=== PATIENT | female | born 1930 | race Caucasian/White ===

== ENCOUNTER → 2016-07-18 | Outpatient (CLI) | payer MEDICARE, BC | LOC: GMAB 10:41 | PROVIDERS: ATTEND Family Medicine | DX: D50.9 Iron deficiency anemia, unspecified (principal); I10 Essential (primary) hypertension ==

== ENCOUNTER → 2016-07-19 | Outpatient (CLI) | payer MEDICARE, BC ==
--- NOTE | 2016-07-19 10:13 | MAM ---
EXAM DESCRIPTION: MAMMO BREAST SCREENING BILATERAL CAD, images were reviewed with CAD technology, R2 computer-aided detection. CLINICAL HISTORY: [facility]. COMPARISON: 2011. FINDINGS: Routine views are obtained. Scattered glandular contour has increased nodularity and mammographic density. Distribution is stable. No dominant mass, architectural distortion or clustered microcalcification.. IMPRESSION: Benign exam. BIRAD CATEGORY: 2 BENIGN RECOMMENDATIONS: FOLLOW-UP: Routine screening mammogram in one year. According to the [employer], yearly mammograms are recommended starting at age 40 and continuing as long as a woman is in good health. Any breast change noted on a breast self-exam should be reported promptly to the patient's healthcare provider. Breast MRI is recommended for women with an approximately 20-25% or greater lifetime risk of breast cancer, including women with a strong family history of breast or ovarian cancer and women who have been treated for Hodgkin's disease. Electronically signed by: Grisel Murillo 07/19/2016 10:11
== END ==
LOC: MAMMO 09:25
PROVIDERS: ATTEND Family Medicine
DX: Z12.31 Encounter for screening mammogram for malignant neoplasm of breast (principal)
CPT/HCPCS: 77052; G0202

== ENCOUNTER → 2016-12-14 | Outpatient (CLI) | payer MEDICARE, BC | LOC: GMAB 16:39 | PROVIDERS: ATTEND Family Medicine | DX: D50.9 Iron deficiency anemia, unspecified (principal) ==

== ENCOUNTER → 2017-07-19 | Outpatient (CLI) | payer MEDICARE, BC | END | disposition home or self-care (01) | LOC: GMAB 13:07 | PROVIDERS: ATTEND Family Medicine | DX: D47.3 Essential (hemorrhagic) thrombocythemia (principal); E78.2 Mixed hyperlipidemia; I10 Essential (primary) hypertension ==

== ENCOUNTER → 2017-08-09 | Outpatient (CLI) | payer MEDICARE, BC ==
--- NOTE | 2017-08-13 09:33 | MAM ---
EXAM DESCRIPTION: 3D Screening BILATERAL : Digital Mammography. CLINICAL HISTORY: 87 years Female SCREENING . No complaints. No family history breast cancer. Postmenopausal. No HRT. Left breast biopsy. COMPARISON: 2-D screening bilateral studies 07/19/2016 and 05/31/2015. Report from prior examination also reviewed. TECHNIQUE: Bilateral CC and MLO projection full-field images, 3-D tomosynthesis digital mammographic technique. Also bilateral synthesized CC/ MLO full-field images. CAD not utilized. FINDINGS: The breast parenchymal density pattern is: Scattered areas of fibroglandular density. No skin thickening or nipple retraction bilateral coarse calcifications and solitary microcalcifications. No focal, stellate mass or density, focal asymmetry , and no suspicious microcalcifications bilaterally. Stable mammograms compared to prior study, taking into account differences in mammographic technique IMPRESSION: BI-RADS CATEGORY: 2 - BENIGN FINDINGS. FOLLOW UP: Routine digital bilateral screening, one year interval from August 2017. Written communication explaining the IMPRESSION and follow-up, will be mailed to the patient and referring health care provider. According to the [employer], yearly mammograms are recommended starting at age 40 and continuing as long as a woman is in good health. Any breast change noted on a breast self-exam should be reported promptly to the patient's healthcare provider. Breast MRI is recommended for women with an approximately 20-25% or greater lifetime risk of breast cancer, including women with a strong family history of breast or ovarian cancer and women who have been treated for Hodgkin's disease. A negative mammographic report should not delay tissue diagnosis in patients with significant clinical history or physical findings. Extremely dense breast tissue limits the sensitivity of digital mammography. Electronically signed by: Ernesto Leary MD 08/13/2017 9:32 AM [facility]
== END ==
LOC: MAMMO 13:53
PROVIDERS: ATTEND Family Medicine
DX: Z12.31 Encounter for screening mammogram for malignant neoplasm of breast (principal)

== ENCOUNTER → 2017-09-26 | Outpatient (CLI) | payer MEDICARE, BC | LOC: GMAB 10:59 | PROVIDERS: ATTEND Family Medicine | DX: D47.3 Essential (hemorrhagic) thrombocythemia (principal) ==

== ENCOUNTER → 2018-01-14 | Outpatient (CLI) | payer MEDICARE, BC | LOC: GMAE 12:16 | PROVIDERS: ATTEND Family Medicine | DX: R10.33 Periumbilical pain (principal) ==

== ENCOUNTER → 2018-01-25 | Outpatient (CLI) | payer MEDICARE, BC | LOC: GMAE 10:46 | PROVIDERS: ATTEND Family Medicine | DX: D47.3 Essential (hemorrhagic) thrombocythemia (principal) ==

== ENCOUNTER 2018-03-27 11:16 | Emergency (ER) | payer MEDICARE, BC ==
[2018-03-27 11:32] VITALS: TEMP 99
--- NOTE | 2018-03-27 12:28 | RAD ---
EXAM DESCRIPTION: Chest,2 Views CLINICAL HISTORY: sob, decrease bs lll COMPARISON: Previous chest x-ray August 21, 2017, previous chest x-ray July 31, 2013 TECHNIQUE: PA/lateral FINDINGS: There is no acute appearing cardiac or pulmonary abnormality. Heart size is normal with normal pulmonary vascularity. No pleural effusion or pneumothorax. Lungs are clear with no consolidating infiltrate. Multiple old right rib fractures appear healed. Lateral view shows intact sternum and osteoporotic T-spine. Methacrylate is seen in the lower T spine with multiple old vertebral compressions. No change since most recent study. IMPRESSION: No acute process is identified in the chest. Electronically signed by: Rolando Mcgrath MD 03/27/2018 12:26 PM CDT
--- NOTE | 2018-03-27 13:48 | RAD ---
EXAM DESCRIPTION: Abdomen Flat Upright CLINICAL HISTORY: 87 years Female, abd discomfort COMPARISON: None. FINDINGS: Upright and supine views of the abdomen show no free subdiaphragmatic gas or intra-abdominal air-fluid level. The gallbladder is surgically absent. The bowel gas pattern is nonobstructed. No suspicious intra-abdominal calcification or mass. Old lower thoracic vertebral body compression fractures are noted with augmentation at several levels. IMPRESSION: No obstruction, pneumoperitoneum or other acute intra-abdominal abnormality. Electronically signed by: Tien Mcgee MD 03/27/2018 1:46 PM CDT
[2018-03-27] MEDS ORDERED: MAGNESIUM HYDROXIDE 30 ML UD PO ONE (13:57)
--- NOTE | 2018-03-27 14:03 | ED.PDOC ---
History of Present Illness - General Chief Complaint: Respiratory Problem Stated Complaint: shortness of breath Time Seen by Provider: 03/27/18 11:35 Source: patient Exam Limitations: no limitations - History of Present Illness Initial Comments: the patient is an 87-year-old female presenting to the emergency room with family secondary to sensation of some mild shortness of breath along with some abdominal fullness and cramping. She has a history of gastritis as well as constipation in the past. No cough. Activity does not make shortness of breath any worse. She is just generally uncomfortable. No fevers. No productive cough. No urinary symptoms. Timing/Duration: 24 hours Severity: mild Improving Factors: nothing Worsening Factors: nothing Associated Symptoms: loss of appetite, malaise, shortness of breath Allergies/Adverse Reactions: Allergies NO KNOWN ALLERGY Allergy (Unverified 03/09/13 23:42) Home Medications: Ambulatory Orders Citalopram Hydrobromide [Celexa] 40 mg PO DAILY 02/28/14 Fenofibric Acid [Trilipix] 135 mg PO DAILY 02/28/14 Gabapentin [Neurontin] 600 mg PO BID 02/28/14 HYDROcodone 5MG/APAP 325MG [Bunnlevel 5/325] 600 mg PO BID 02/28/14 Lisinopril 10 mg PO DAILY 02/28/14 Pantoprazole Suspension [Protonix] 40 mg PO DAILY 02/28/14 Aspirin [Adult Aspirin Regimen] 81 mg PO DAILY 03/27/18 Calcium 600 mg PO BID 03/27/18 Choline Fenofibrate [Trilipix] 135 mg PO DAILY 03/27/18 Cyanocobalamin [Vitamin B-12] 2,500 mcg SL BID 03/27/18 Ferrous Sulfate [Iron] 65 mg PO BID 03/27/18 Multiple Vitamins W/ Minerals [Centrum Silver] 1 tab PO DAILY 03/27/18 Brock[place]-3 Fatty Acids [Fish Oil 1200 mg] 1 cap PO DAILY 03/27/18 Sucralfate Tab [Carafate Tab] 1 gm PO QID #120 tab 03/27/18 Review of Systems - Review of Systems Constitutional: States: no symptoms reported EENTM: States: no symptoms reported Respiratory: States: short of breath Cardiology: States: no symptoms reported Gastrointestinal/Abdominal: States: abdominal pain, constipation Genitourinary: States: no symptoms reported Musculoskeletal: States: no symptoms reported Skin: States: no symptoms reported Neurological: States: anxiety Endocrine: States: no symptoms reported All other Systems: No Change from Baseline Past Medical History (General) - Patient Medical History Hx Seizures: No Hx Stroke: No Hx Dementia: No Hx Asthma: No Hx of COPD: No Hx Cardiac Disorders: Yes - Has implanted laboratory monitor, Hx Congestive Heart Failure: No Hx Pacemaker: No Hx Hypertension: Yes Hx Diabetes: No Hx Gastroesophageal Reflux: No Hx Renal Disease: No Surgical History: Hysterectomy - Vaccination History Hx Influenza Vaccination: Yes Hx Pneumococcal Vaccination: Yes - Social History Hx Tobacco Use: No Family Medical History - Family History Mother Family History: Unknown Physical Exam - Physical Exam General Appearance: Alert, Anxious, No apparent distress Eye Exam: bilateral normal Ears, Nose, Throat: hearing grossly normal, normal ENT inspection, normal pharynx Neck: full range of motion, supple Respiratory: lungs clear, normal breath sounds, no respiratory distress, no accessory muscle use Cardiovascular/Chest: normal peripheral pulses, regular rate, rhythm, no edema Peripheral Pulses: radial,right: 2+, radial,left: 2+, dorsalis pedis,right: 2+, dorsalis pedis,left: 2+ Gastrointestinal/Abdominal: non tender, soft Rectal Exam: deferred Back Exam: no CVA tenderness, no vertebral tenderness Extremity: non-tender, normal inspection, no pedal edema, normal capillary refill Neurologic: motor brakeman II-XII nml as tested, alert, normal mood/affect, oriented x 3 Skin Exam: normal color Comments: Vital Signs - 24 hr 03/27/18 03/27/18 03/27/18 11:30 11:37 12:25 Temperature 99 F Pulse Rate [ 84 87 Left Brachial] Respiratory 20 20 Rate Blood Pressure 177/87 157/88 [Left Arm] O2 Sat by Pulse 97 98 Oximetry 03/27/18 13:24 Temperature Pulse Rate [ 71 Left Brachial] Respiratory 20 Rate Blood Pressure 157/79 [Left Arm] O2 Sat by Pulse 97 Oximetry Progress - Progress Progress: 03/27/18 14:04 the patient's 87-year-old female presenting with symptoms of mild shortness of breath and abdominal discomfort. The patient is going to be treated for gastritis and constipation. 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 She'll be written for Carafate 3 times daily for the next 2 weeks. She needs to keep herself better hydrated as she does have some mild dehydration based on lab work. She needs to follow back up with her primary care doctor later this week or early next week. ER warnings are given. - Results/Orders Results/Orders: chest x-ray shows no acute infiltrate or obvious fluid overload. Abdominal x- ray shows no evidence of any obstruction. There is moderate constipation in the transverse colon. No evidence of any ileus. Laboratory Tests 03/27/18 03/27/18 03/27/18 11:50 11:50 12:15 WBC 7.2 RBC 3.73 L Hgb 12.0 Hct 36.1 MCV 96.6 MCH 32.1 H MCHC 33.3 RDW 12.9 Plt Count 484 H MPV 8.2 Absolute Neuts (auto) 4.80 Absolute Lymphs (auto) 1.70 Absolute Monos (auto) 0.70 Absolute Eos (auto) 0.10 Absolute Basos (auto) 0.00 Neutrophils % 66.0 Lymphocytes % 23.0 Monocytes % 9.1 H Eosinophils % 1.3 Basophils % 0.6 Sodium 139 Potassium 4.1 Chloride 103 Carbon Dioxide 27 Anion Gap 13.1 BUN 35 H Creatinine 1.28 BUN/Creatinine Ratio 27.3 H Random Glucose 149 H Serum Osmolality 288.3 Calcium 9.9 Total Bilirubin 0.9 AST 25 ALT 10 Alkaline Phosphatase 33 L Creatine Kinase 75 CK-MB (CK-2) 2.6 CK-MB (CK-2) % Not Reportable Troponin I < 0.02 B-Natriuretic Peptide 27.7 Serum Total Protein 7.1 Albumin 4.6 Globulin 2.5 Albumin/Globulin Ratio 1.8 Urine Color Yellow Urine Appearance Clear Urine pH 7.0 Ur Specific Hitchcock 1.010 Urine Protein Negative Urine Glucose (UA) Negative Urine Ketones Negative Urine Blood Negative Urine Nitrite Negative Urine Bilirubin Negative Urine Urobilinogen 0.2 Ur Leukocyte Esterase Negative Urine RBC 0 Urine WBC 0 Ur Epithelial Cells 0 Urine Bacteria 0 Departure - Departure Clinical Impression: Dehydration, mild Constipation Qualifiers: Constipation type: other constipation type Qualified Code(s): K59.09 - Other constipation Gastritis Qualifiers: Gastritis type: unspecified gastritis Chronicity: acute Gastritis bleeding: without bleeding Qualified Code(s): K29.00 - Acute gastritis without bleeding Disposition: Discharge to Home or Self Care Condition: Fair Departure Forms: ED Discharge - Pt. Copy, Patient Portal Self Enrollment Instructions: Gastritis (DC), Constipation, Adult (DC) Diet: bland diet Activity: increase activity as tolerated Referrals: LORNE GONZALEZ MD [Primary Care Provider] - 1-5 Days Prescriptions: Sucralfate Tab [Carafate Tab] 1 gm PO QID #120 tab Home Medications: Ambulatory Orders Citalopram Hydrobromide [Celexa] 40 mg PO DAILY 02/28/14 Fenofibric Acid [Trilipix] 135 mg PO DAILY 02/28/14 Gabapentin [Neurontin] 600 mg PO BID 02/28/14 HYDROcodone 5MG/APAP 325MG [Bunnlevel 5/325] 600 mg PO BID 02/28/14 Lisinopril 10 mg PO DAILY 02/28/14 Pantoprazole Suspension [Protonix] 40 mg PO DAILY 02/28/14 Aspirin [Adult Aspirin Regimen] 81 mg PO DAILY 03/27/18 Calcium 600 mg PO BID 03/27/18 Choline Fenofibrate [Trilipix] 135 mg PO DAILY 03/27/18 Cyanocobalamin [Vitamin B-12] 2,500 mcg SL BID 03/27/18 Ferrous Sulfate [Iron] 65 mg PO BID 03/27/18 Multiple Vitamins W/ Minerals [Centrum Silver] 1 tab PO DAILY 03/27/18 [place]-3 Fatty Acids [Fish Oil 1200 mg] 1 cap PO DAILY 03/27/18 Sucralfate Tab [Carafate Tab] 1 gm PO QID #120 tab 03/27/18 Additional Instructions: the patient's 87-year-old female presenting with symptoms of mild shortness of breath and abdominal discomfort. The patient is going to be treated for gastritis and constipation. 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 She'll be written for Carafate 3 times daily for the next 2 weeks. She needs to keep herself better hydrated as she does have some mild dehydration based on lab work. She needs to follow back up with her primary care doctor later this week or early next week. ER warnings are given.
[2018-03-27 14:32] VITALS: BP 176/91; O2SAT 95
== END 2018-03-27 14:32 | disposition home or self-care (01) ==
LOC: ER 11:16
DX: K29.00 Acute gastritis without bleeding (principal); K59.09 Other constipation; E86.0 Dehydration; R06.02 Shortness of breath; I10 Essential (primary) hypertension; Z79.82 Long term (current) use of aspirin; Z79.899 Other long term (current) drug therapy

== ENCOUNTER → 2018-04-04 | Outpatient (CLI) | payer MEDICARE, BC ==
--- NOTE | 2018-04-04 12:50 | CT ---
EXAM DESCRIPTION: Abdomen/Pelvis w/Contrast CLINICAL HISTORY: PERIUMBILICAL PAIN COMPARISON: 10/08/2014 TECHNIQUE: CT of the abdomen and pelvis was performed following intravenous contrast. Multiple axial images and multiplanar reconstructions were generated. This exam was performed according to our departmental dose-optimization program, which includes automated exposure control, adjustment of the mA and/or kV according to patient size and/or use of iterative reconstruction technique. FINDINGS: Lung bases: Calcified granulomas in the lung bases. Solid organs: Cholecystectomy clips. The liver, spleen, pancreas, kidneys, and adrenal glands are unremarkable. Gastrointestinal: Small hiatal hernia. No bowel obstruction. The colon is mostly decompressed, which somewhat limits evaluation. No mesenteric inflammation. The appendix is not visualized, but there is no pericecal inflammation. No free fluid or free air. Vascular: Mild atherosclerotic plaque in the abdominal aorta and its major branches. Lymph nodes: No pathologically enlarged lymph nodes are present by CT size criteria. Musculoskeletal and soft tissues: There is a small fat-containing umbilical hernia. 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 Several chronic lower thoracic compression fractures which are post augmentation. Urinary bladder and pelvic organs: The urinary bladder is normal. The uterus is surgically absent. IMPRESSION: 1. No acute abdominal or pelvic CT findings. 2. Small fat-containing umbilical hernia. 3. Small hiatal hernia. 4. Other findings as above. Electronically signed by: Clayton Contreras MD 04/04/2018 12:48 PM CDT
== END ==
LOC: LAB.O 11:30
PROVIDERS: ATTEND Family Medicine
DX: K42.9 Umbilical hernia without obstruction or gangrene (principal); K44.9 Diaphragmatic hernia without obstruction or gangrene; R10.33 Periumbilical pain

== ENCOUNTER → 2018-05-30 | Outpatient (CLI) | payer MEDICARE, BC ==
--- NOTE | 2018-05-30 15:37 | US ---
EXAM DESCRIPTION: Venous,Lower Extremity RT CLINICAL HISTORY: Phlebitis and thrombophlebitis COMPARISON: None Available. TECHNIQUE: Right lower extremity venous duplex with color Doppler and grayscale images FINDINGS: Doppler evaluation of the right lower extremity deep veins was performed. Normal color flow is seen in the common femoral, superficial femoral, profunda femoral and greater saphenous veins. Normal flow is seen in the popliteal vein and veins below the knee in the calf. Normal venous compressibility and flow augmentation. IMPRESSION: Negative for evidence of deep venous thrombosis on right lower extremity venous Doppler sonogram. Electronically signed by: Rolando Mcgrath MD 05/30/2018 3:36 PM [employer]
== END ==
LOC: US 11:20
PROVIDERS: ATTEND Nurse Practitioner Family
DX: M79.604 Pain in right leg (principal); I80.209 Phlebitis and thrombophlebitis of unspecified deep vessels of unspecified lower extremity; G60.9 Hereditary and idiopathic neuropathy, unspecified

== ENCOUNTER → 2018-07-31 | Outpatient (CLI) | payer MEDICARE, BC | LOC: GMAE 10:42 | PROVIDERS: ATTEND Family Medicine | DX: D47.3 Essential (hemorrhagic) thrombocythemia (principal); D50.8 Other iron deficiency anemias; I10 Essential (primary) hypertension ==

== ENCOUNTER → 2018-08-22 | Outpatient (CLI) | payer MEDICARE, BC ==
--- NOTE | 2018-08-26 14:39 | MAM ---
EXAM DESCRIPTION: 3D Screening BILATERAL : Digital Mammography. CLINICAL HISTORY: 88 years Female ANNUAL SCREENING . No complaints. No personal or family history of breast cancer. Childbirth. Postmenopausal. HRT 5 or more years ago. Prior cyst aspiration and biopsy benign right breast.. Lifetime risk of developing breast cancer (Tyrer-Cuzick model)(%): Not calculated due to age greater than 85 years. COMPARISON: bilateral screening digital breast tomosynthesis 08/09/2017. TECHNIQUE: Bilateral CC and MLO projection full-field images, digital tomosynthesis mammographic technique. Bilateral digital 2-D full-field MLO images. CAD not available for tomosynthesis or 2-D images. FINDINGS: The breast parenchymal density pattern is: Scattered areas of fibroglandular density. No skin thickening or nipple retraction. Coarse calcification anterior right breast. Scattered microcalcifications left breast. Bilateral vascular calcifications. No new focal, stellate mass or density, focal asymmetry , and no suspicious microcalcifications bilaterally. Stable mammograms compared to prior study. IMPRESSION: Benign exam. BIRAD CATEGORY: 2 BENIGN FINDINGS. RECOMMENDATIONS: FOLLOW UP: Routine digital bilateral mammographic screening, one year interval from August 2018. Written communication explaining the IMPRESSION and follow-up, will be mailed to the patient and referring health care provider. According to the [employer], yearly mammograms are recommended starting at age 40 and continuing as long as a woman is in good health. Any breast change noted on a breast self-exam should be reported promptly to the patient's healthcare provider. Breast MRI is recommended for women with an approximately 20-25% or greater lifetime risk of breast cancer, including women with a strong family history of breast or ovarian cancer and women who have been treated for Hodgkin's disease. A negative mammographic report should not delay tissue diagnosis in patients with significant clinical history or physical findings. Extremely dense breast tissue limits the sensitivity of digital mammography. 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
== END ==
LOC: MAMMO 10:58
PROVIDERS: ATTEND Family Medicine
DX: Z12.31 Encounter for screening mammogram for malignant neoplasm of breast (principal)

== ENCOUNTER → 2019-04-30 | Outpatient (CLI) | payer MEDICARE, BC ==
--- NOTE | 2019-04-30 11:56 | CT ---
EXAM DESCRIPTION: Head CLINICAL HISTORY: HEADACHE COMPARISON: Previous CT head October 23, 2013 TECHNIQUE: Noncontrast head CT was performed with routine protocol. 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 Otherwise normal goldstein-white matter differentiation. Ventricles and sulci are prominent consistent with age-related cerebral volume loss. Low density white matter consistent with chronic microvascular ischemic disease. No high density hemorrhage, focal edema or shift of the midline. No sulcal effacement. Normal orbital contents. Basilar cisterns appear clear. Intact calvarium with no fracture or lytic lesion. Normal aeration of tympanic cavities and mastoid air cells. No fluid levels in the paranasal sinuses. Skull base appears intact. Symmetrical internal auditory canals. No change compared to the previous study. Coronal and sagittal reformatted images confirm the findings. IMPRESSION: No acute intracranial pathologic process. This exam was performed according to our departmental dose-optimization program, which includes automated exposure control, adjustment of the mA and/or kV according to patient size and/or use of iterative reconstruction technique. Total DLP equals 1165.57 mGycm. Electronically signed by: Rolando Mcgrath MD 04/30/2019 11:55 AM CDT
--- NOTE | 2019-04-30 12:05 | CT ---
EXAM DESCRIPTION: Maxillofacial CLINICAL HISTORY: HEADACHE COMPARISON: None Available. TECHNIQUE: CT of the sinuses is performed with direct axial imaging technique. Multiplanar reformatted images are reviewed post along with source images. FINDINGS: Axial bone window images show 2 mm nodular mucosal thickening in the inferior right maxillary sinus. No air-fluid levels in the paranasal sinuses. No frontal sinus development. No bony destructive lesion or fracture of the facial bones. TMJ arthrosis right more than left with fragmentation and spurring. Normal aeration of tympanic cavities and external auditory canals and mastoid air cells. Coronal reformatted images show no pneumatization of the anterior clinoids. No Onodi cell pneumatization. Bony septum of the sphenoid sinus extending to the bilateral medial gibbs of the carotid siphons. No erosion of the scutum. Normal middle ear ossicles. Intact lamina papyracea bilaterally. No evidence of old medial or inferior orbital blowout fracture. Shallow olfactory fossae bilaterally measuring 2.4 mm in depth on the right and 4.5 mm in depth on the left (Keros type II). Cribriform plate appears symmetrical right and left. In the plane of the ostiomeatal units, anatomically narrow maxillary sinus ostia with normal aeration of hiatus semilunaris and middle meatus regions. No anterior ethmoidal arterial exposure on either side. 1 mm rightward deviation of the lower nasal septum. Sagittal reformatted images confirm the findings. Sellar pneumatization pattern of the sphenoid sinus with thickness of the posterior sphenoid wall/upper clivus 6.5 mm. No bony dehiscence of the sella or optic nerve canals. Advanced degenerative cervical disc disease with reversal of the normal cervical lordosis, positive for spinal stenosis. IMPRESSION: Nodular mucosal thickening 2 mm in the inferior right maxillary sinus. No air-fluid levels in the paranasal sinuses. This exam was performed according to our departmental dose-optimization program, which includes automated exposure control, adjustment of the mA and/or kV according to patient size and/or use of iterative reconstruction technique. Electronically signed by: Rolando Mcgrath MD 04/30/2019 12:04 PM CDT
== END ==
LOC: CT 11:21
PROVIDERS: ATTEND Family Medicine
DX: R51 Headache (principal); J34.9 Unspecified disorder of nose and nasal sinuses

== ENCOUNTER → 2019-08-18 | Outpatient (CLI) | payer MEDICARE, BC | LOC: GMAE 10:33 | PROVIDERS: ATTEND Family Medicine | DX: I10 Essential (primary) hypertension (principal); E78.2 Mixed hyperlipidemia ==

== ENCOUNTER → 2019-09-10 | Outpatient (CLI) | payer MEDICARE, BC ==
--- NOTE | 2019-09-10 19:29 | MAM ---
EXAM DESCRIPTION: 3D Diagnostic, Right (accession [id number]), Breast,Right (accession [id number]): Ultrasound CLINICAL HISTORY: 89 yearsFemaleABNORMAL MAMMO . Focal asymmetry mid right breast. Lifetime risk of developing breast cancer (Tyrer-Cuzick model)(%): Not calculated due to a greater than 85. COMPARISON: Bilateral screening digital breast tomosynthesis, August 25. TECHNIQUE: Right breast LM projection full-field images, digital tomosynthesis technique. Right breast 2-D digital full-field images: LM projection. CAD available for 2-D images.. Transcutaneous scanning of the right breast utilizing goldstein-scale and Doppler modes. Scanning performed by the process improvement consultant ; observation by Dr. Leary. FINDINGS: The breast parenchymal density pattern is: Scattered areas of fibroglandular density. No skin thickening or nipple retraction focal asymmetry visualized at the 2:00 to 2:30 section of the right breast middle third. No abnormal microcalcifications. Ultrasound: Scanning the middle third of the upper inner quadrant right breast. Combination of fibroglandular and fatty tissues. Anterior layer is fatty with deep layer of fibroglandular tissues and a second fatty layer abutting the chest wall. No dominant solid mass or distinct cyst. No parenchymal edema or large calcifications. No overlying skin changes. IMPRESSION: Benign exam. Normal islands of fibroglandular tissue. BIRAD CATEGORY: 2 BENIGN FINDINGS. RECOMMENDATIONS: FOLLOW UP: Return to routine digital bilateral mammographic screening, one year interval from August 2019. Written communication explaining the IMPRESSION and follow-up, will be mailed to the patient and referring health care provider. The FINDINGS and the FOLLOW-UP plan were reviewed in person with the patient after the examination. According to the [employer], yearly mammograms are recommended starting at age 40 and continuing as long as a woman is in good health. Any breast change noted on a breast self-exam should be reported promptly to the patient's healthcare provider. Breast MRI is recommended for women with an approximately 20-25% or greater lifetime risk of breast cancer, including women with a strong family history of breast or ovarian cancer and women who have been treated for Hodgkin's disease. A negative mammographic report should not delay tissue diagnosis in patients with significant clinical history or physical findings. Extremely dense breast tissue limits the sensitivity of digital mammography. Electronically signed by: Ernesto Leary MD 09/10/2019 7:27 PM CDT
== END ==
LOC: MAMMO 08:00
PROVIDERS: ATTEND Family Medicine
DX: R92.2 Inconclusive mammogram (principal)
CPT/HCPCS: 76641; 77065; G0279

== ENCOUNTER → 2019-12-03 | Outpatient (CLI) | payer MEDICARE, BC | LOC: GMAE 14:22 | PROVIDERS: ATTEND Family Medicine | DX: R10.13 Epigastric pain (principal) ==

== ENCOUNTER → 2019-12-05 | Outpatient (CLI) | payer MEDICARE, BC ==
--- NOTE | 2019-12-05 11:12 | CT ---
EXAM DESCRIPTION: Abdoment/Pelvis w/o Contrast CLINICAL HISTORY: EPIGASTRIC PAIN COMPARISON: None. TECHNIQUE: Noncontrast transaxial CT images of the abdomen and pelvis are obtained. This exam was performed according to our departmental dose-optimization program, which includes automated exposure control, adjustment of the mA and/or kV according to patient size and/or use of iterative reconstruction technique . FINDINGS: The visualized lung bases show no acute findings. Given the limitations of a noncontrast exam the liver, spleen, pancreas, and adrenal glands are unremarkable. Surgical clips from cholecystectomy. Mild calcifications of the arterial vasculature. 3 mm nonobstructing calcification in the midpole calyx of the right kidney. 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 No ureteral calcification or obstruction. Urinary bladder is distended and unremarkable. Uterus is not identified and presumed surgically absent. The appendix is not identified. No secondary signs of acute appendicitis. Stomach is contracted. Possible small hiatal hernia. No mass lesion or inflammatory changes. No small bowel obstruction or bowel wall thickening. Mildly increased volume of stool throughout the colon. No significant diverticular disease. No free intraperitoneal air. No drainable fluid collections. No pathologic lymphadenopathy. 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 Osseous structures show severe spondylitic changes. Anterolisthesis of L3 on L4 is again seen. Multilevel compression fracture deformity status post vertebral augmentation of the lower thoracic spine is seen. Tiny fat-containing umbilical hernia is stable. IMPRESSION: No acute findings on CT of the abdomen and pelvis. Minimal nonobstructing right nephrolithiasis is seen. Mild colon constipation or obstipation. Small hiatal hernia. Electronically signed by: Chandler Ovalle MD 12/05/2019 11:11 AM CDT
== END ==
LOC: CT 08:29
PROVIDERS: ATTEND Family Medicine
DX: N20.0 Calculus of kidney (principal); K59.00 Constipation, unspecified

== ENCOUNTER → 2019-12-11 | Outpatient (CLI) | payer MEDICARE, BC | LOC: ECHO 11:00 | PROVIDERS: ATTEND Family Medicine | DX: I51.7 Cardiomegaly (principal); I35.1 Nonrheumatic aortic (valve) insufficiency; R60.0 Localized edema ==

== ENCOUNTER → 2020-01-20 | Outpatient (CLI) | payer MEDICARE, BC | LOC: GMAE 17:10 | PROVIDERS: ATTEND Family Medicine | DX: D50.9 Iron deficiency anemia, unspecified (principal); R94.4 Abnormal results of kidney function studies ==

== ENCOUNTER → 2020-04-29 | Outpatient (CLI) | payer MEDICARE, BC | LOC: GMAE 10:55 | PROVIDERS: ATTEND Family Medicine | DX: D50.9 Iron deficiency anemia, unspecified (principal) ==

== ENCOUNTER → 2020-06-21 | Outpatient (CLI) | payer MEDICARE, BC ==
--- NOTE | 2020-06-21 11:46 | CT ---
EXAM DESCRIPTION: Abdomen/Pelvis w/Contrast: Computed Tomography. CLINICAL HISTORY: 89 years Female GENERALIZED ABD PAIN COMPARISON: CT scan of the abdomen without oral and IV contrast December 04. TECHNIQUE: Spiral-axial scans at 5.0 mm intervals through the abdomen and pelvis, after 50% of the standard dose of Optiray 325 nonionic IV contrast and water-soluble oral contrast. Coronal and sagittal 2.0 mm reconstructions. 5 minute Delayed scans, liver through the pelvis. Axial-spiral 5mm. No adverse reactions. The standard dose of IV contrast was reduced by 50% due to patient's decreased renal function. Total Exam DLP: 651 mGy-cm. This exam was performed according to our departmental dose-optimization program which includes automated exposure control, adjustment of the mA and/or kV according to patient size and/or use of iterative reconstruction technique; to reduce radiation dose to as low as reasonably achievable (ALARA). FINDINGS: Lung bases and pleura: Calcifications in the right lower lobe are stable. No acute process. Liver, Stomach, Spleen, Adrenal Glands: Small hiatal hernia. Other solid organs are negative. Pancreas, Gallbladder, Ducts: Surgical clips in the gallbladder fossa with no fluid in the gallbladder fossa. Pancreas negative. Dilated common bile duct most likely related to cholecystectomy. Kidneys and Ureters: Small cortical cyst inferior pole left kidney otherwise unremarkable bilaterally. Mesentery: No fatty stranding, no free fluid or free air. Aorta: Minimal atherosclerosis with normal caliber of the aorta. Small Bowel: Diffuse gas, proximal more than distal, with no distended segments or significant air-fluid levels. Terminal Ileum/Cecum: Normal caliber with appendix not seen. No fatty inflammatory changes. Colon: Minimal fecal matter diffusely except for descending colon. Pelvic Organs: No free fluid. Vaginal cuff negative. No radiopaque stones in the urinary bladder. 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 Disc desiccation and spondylosis. Spondylolisthesis grade 2 L3-L4. Multiple levels of vertebral body compression and vertebral body augmentation in the included thoracic spine. Abdominal Wall/Back Soft Tissues: Bilateral small fatty inguinal hernias containing bowel. IMPRESSION: 1. No free air, no free fluid, and no inflammatory changes in the mesentery or the peritoneal cavity. 2. Minimal colonic constipation but no air-fluid levels. No small bowel air-fluid levels. 3. Small sliding hiatal hernia. Small fatty inguinal hernias. No interval change. 4. Multiple bilateral subchondral cysts in the acetabula with joint space narrowing. Stable since the prior study. Electronically signed by: Ernesto Leary MD 06/21/2020 11:44 AM [facility]
== END ==
LOC: CT 07:52
PROVIDERS: ATTEND Internal Medicine Gastroenterology
DX: Z01.812 Encounter for preprocedural laboratory examination (principal); R10.84 Generalized abdominal pain; K59.00 Constipation, unspecified; K44.9 Diaphragmatic hernia without obstruction or gangrene; K40.20 Bilateral inguinal hernia, without obstruction or gangrene, not specified as recurrent; M71.351 Other bursal cyst, right hip; M71.352 Other bursal cyst, left hip; M25.851 Other specified joint disorders, right hip; M25.852 Other specified joint disorders, left hip

== ENCOUNTER 2020-07-04 13:49 | Inpatient (IN) | payer MEDICARE, BC ==
--- NOTE | 2020-07-04 14:21 | ED.PDOC ---
History of Present Illness - General Chief Complaint: Respiratory Problem Stated Complaint: cough, diarrhea Time Seen by Provider: 07/04/20 14:16 Additional Information: Patient is an 89-year-old female who presents to the ED with chief complaint of low oxygen levels. Patient went to her clinic today to get a Covid test. Patient indicates she is feeling her normal self with no symptoms at all and she went simply because she is curious if she has the Covid. Patient was noted to be hypoxic in the clinic and she was referred to the emergency department for further evaluation. Patient denies chest pain, shortness of breath, nausea, vomiting, fever, chills. Patient indicates that she has a chronic occasional cough which is slightly worse for the past few days. Patient is a non-smoker. Patient has no other concerns today. - History of Present Illness Allergies/Adverse Reactions: Allergies NO KNOWN ALLERGY Allergy (Unverified 03/09/13 23:42) Home Medications: Ambulatory Orders Citalopram Hydrobromide [Celexa] 40 mg PO DAILY 02/28/14 Fenofibric Acid [Trilipix] 135 mg PO DAILY 02/28/14 Gabapentin [Neurontin] 600 mg PO BID 02/28/14 HYDROcodone 5MG/APAP 325MG [[place] 5/325] 600 mg PO BID 02/28/14 Lisinopril 10 mg PO DAILY 02/28/14 Pantoprazole Suspension [Protonix] 40 mg PO DAILY 02/28/14 Aspirin [Adult Aspirin Regimen] 81 mg PO DAILY 03/27/18 Calcium 600 mg PO BID 03/27/18 Choline Fenofibrate [Trilipix] 135 mg PO DAILY 03/27/18 Cyanocobalamin [Vitamin B-12] 2,500 mcg SL BID 03/27/18 Ferrous Sulfate [Iron] 65 mg PO BID 03/27/18 Multiple Vitamins W/ Minerals [Centrum Silver] 1 tab PO DAILY 03/27/18 Kenner-3 Fatty Acids [Fish Oil 1200 mg] 1 cap PO DAILY 03/27/18 Sucralfate Tab [Carafate Tab] 1 gm PO QID #120 tab 03/27/18 Review of Systems - Review of Systems Constitutional: States: no symptoms reported. Denies: chills, malaise, weakness EENTM: States: no symptoms reported Respiratory: States: cough. Denies: short of breath Cardiology: States: no symptoms reported. Denies: chest pain, palpitations Gastrointestinal/Abdominal: States: no symptoms reported. Denies: abdominal pain, nausea, vomiting Genitourinary: States: no symptoms reported. Denies: dysuria Musculoskeletal: States: no symptoms reported. Denies: muscle pain Skin: States: no symptoms reported. Denies: rash All other Systems: Reviewed and Negative Past Medical History (General) - Patient Medical History Hx Seizures: No Hx Stroke: No Hx Dementia: No Hx Asthma: No Hx of COPD: No Hx Cardiac Disorders: Yes - Has implanted youth nutritional monitor, Hx Congestive Heart Failure: No Hx Pacemaker: No Hx Hypertension: Yes Hx Diabetes: No Hx Gastroesophageal Reflux: No Hx Renal Disease: No - Vaccination History Hx Influenza Vaccination: Yes Hx Pneumococcal Vaccination: Yes - Social History Hx Tobacco Use: No Family Medical History - Family History Mother Family History: Unknown Physical Exam - Physical Exam General Appearance: Alert, Comfortable, No apparent distress, Well Developed, Well Nourished ENT Exam: normal ENT inspection Neck: supple, normal inspection Respiratory: chest non-tender, lungs clear, normal breath sounds, no respiratory distress, no accessory muscle use, other - Occasional dry cough. Cardiovascular/Chest: regular rate, rhythm, no edema, no gallop, no JVD, no murmur Gastrointestinal/Abdominal: normal bowel sounds, non tender, no organomegaly, no pulsatile mass Neurologic: curing finisher II-XII nml as tested, no motor/sensory deficits, alert, normal mood/affect, oriented x 3 Skin Exam: normal color, warm/dry Progress - Progress Progress: 07/04/20 14:23 Differential diagnosis includes but is not limited to pneumonia, Covid, ACS, bronchitis. 07/04/20 14:51 EKG: Sinus bradycardia rate 58, normal axis, normal QRS, nonspecific T wave changes, normal ST segment, negative STEMI 07/04/20 14:52 EKG: Normal sinus rhythm rate of 84, normal axis, normal QRS, incomplete right bundle branch block, normal ST segment normal T waves, negative STEMI. 07/04/20 16:00 Patient reassessed and she continues to feel well. Ambulatory oxygen saturation levels are low at 85% and patient is Covid positive. Her chest x-ray is clear and her labs are otherwise unremarkable including her D-dimer. I discussed plan with patient and we will admit for supplemental oxygen and Covid management. Patient is accepting of this plan. 07/04/20 16:09 Have discussed with Den Bowman, hospitalist, who accepts patient for admission. Departure - Departure Clinical Impression: COVID-19, Hypoxia Time of Disposition: 16:06 Disposition: Admit Patient Condition: Fair Departure Forms: ED Discharge - Pt. Copy, Patient Portal Self Enrollment Referrals: LORNE GONZALEZ MD [Primary Care Provider] - 1-2 Weeks Home Medications: Ambulatory Orders Citalopram Hydrobromide [Celexa] 40 mg PO DAILY 02/28/14 Fenofibric Acid [Trilipix] 135 mg PO DAILY 02/28/14 Gabapentin [Neurontin] 600 mg PO BID 02/28/14 HYDROcodone 5MG/APAP 325MG [[place] 5/325] 600 mg PO BID 02/28/14 Lisinopril 10 mg PO DAILY 02/28/14 Pantoprazole Suspension [Protonix] 40 mg PO DAILY 02/28/14 Aspirin [Adult Aspirin Regimen] 81 mg PO DAILY 03/27/18 Calcium 600 mg PO BID 03/27/18 Choline Fenofibrate [Trilipix] 135 mg PO DAILY 03/27/18 Cyanocobalamin [Vitamin B-12] 2,500 mcg SL BID 03/27/18 Ferrous Sulfate [Iron] 65 mg PO BID 03/27/18 Multiple Vitamins W/ Minerals [Centrum Silver] 1 tab PO DAILY 03/27/18 Kenner-3 Fatty Acids [Fish Oil 1200 mg] 1 cap PO DAILY 03/27/18 Sucralfate Tab [Carafate Tab] 1 gm PO QID #120 tab 03/27/18 Decision To Admit - Decistion To Admit Decision to Admit Reason: Admit from ER Decision to Admit Date: 07/04/20 Decision to Admit Time: 16:06
--- NOTE | 2020-07-04 14:46 | RAD ---
EXAM: X-RAY, Chest (1 View) HISTORY: cough. COMPARISON: Chest x-ray from 03/27/2018. TECHNIQUE: AP view of the chest. FINDINGS: Lungs: The lungs are mildly underinflated but clear. Pleural space: No pneumothorax or pleural effusion is present. Heart: The heart is normal in size. Bones: Several remote right lateral rib fractures. IMPRESSION: No acute cardiopulmonary finding. Electronically signed by: Carlos Mann MD 07/04/2020 2:45 PM [facility]
[2020-07-04] MEDS ORDERED: DEXAMETHASONE INJ 10 MG/ML VIAL IV ONE (15:55)
--- NOTE | 2020-07-04 18:08 | HP ---
SUPERVISING PHYSICIAN: Wendy Salcido MD CHIEF COMPLAINT: Cough and diarrhea. HISTORY OF PRESENT ILLNESS: Ms. Jarrell is an 89-year-old female patient who presented to the Emergency Department yesterday complaining of low oxygen levels. She was seen just prior to the ER visit in the clinic at [facility] where she went to get tested, but on presentation to the clinic, she was found to be hypoxic with O2 saturations 88% on room air. She was then referred to the ER for further evaluation. She had no complaints of any chest pain, significant distress or worsening shortness of breath, nausea, vomiting or diarrhea. In the ER, her vital signs showed saturation 89% on room air, afebrile at 98.4. Nasal swab for COVID was positive. She was started on Decadron and oxygen. Blood cultures were completed. Given her history of room air hypoxia with current COVID testing positive and advanced age at 89, she is now going to be admitted for further treatment of COVID pneumonitis. She was admitted in stable condition. PAST MEDICAL HISTORY: 1. Gastroesophageal reflux disease. 2. Hyperlipidemia. 3. Hypertension. 4. Menopause. 5. Osteoporosis. PAST SURGICAL HISTORY: 1. Appendectomy. 2. Cholecystectomy. 3. Hysterectomy. 4. Biopsy of the breast that was benign. 5. Back surgery in 2013. HOME MEDICATIONS: 1. Citalopram 20 mg daily. 2. Amlodipine 5 mg daily. 3. Multivitamin 1 tab daily. 4. Hydrochlorothiazide 12.5 mg daily. 5. Trilipix 135 mg daily. 6. Calcium 600 mg b.i.d. 7. Protonix 40 mg daily. 8. Losartan 100 mg daily. 9. Gabapentin 600 mg b.i.d. ALLERGIES: NO KNOWN DRUG ALLERGIES. FAMILY HISTORY: Noncontributory to current admission. SOCIAL HISTORY: The patient is . 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 She has 3 children. She has never smoked and does not drink alcohol. She lives in [place] by herself. REVIEW OF SYSTEMS: CONSTITUTIONAL: Denies chills, malaise, generalized weakness. HEENT: Denies headaches, sore throats, earaches, vision changes. RESPIRATORY: Denies significant shortness of breath. She does have a worsening cough. CARDIOVASCULAR: Denies chest pain, palpitations or syncopal episodes. GASTROINTESTINAL: Denies nausea, vomiting or abdominal pain. She does have some issues with chronic diarrhea being followed by Dr. Pena. GENITOURINARY: Denies dysuria, hematuria, polyuria. MUSCULOSKELETAL: Denies muscle pain, joint pain, neck pain. SKIN: Denies lesions, rashes, moles or unexplained changes. HEMATOLOGIC: Denies unexplained bleeding, bruising or transfusion reactions. PHYSICAL EXAMINATION: VITAL SIGNS: Temperature 98.3, pulse 52, blood pressure 103/63, respirations 20, saturation 88% on room air. With nasal cannula at 2 liters, saturation 94%. GENERAL: The patient is resting comfortably in no acute distress. HEENT: Tympanic membranes clear bilaterally. Oropharynx is pink, moist without any lesions. NECK: Supple, nontender with full range of motion. No jugular venous distention noted. RESPIRATORY: Lung sounds are fairly clear, just diminished towards the bases without any notable rhonchi, wheezes or rales. CARDIOVASCULAR: Regular rate and rhythm without any appreciable murmurs, gallops, or rubs. ABDOMEN: Soft, nontender. Positive bowel sounds. EXTREMITIES: There is no cyanosis, clubbing or edema. NEUROLOGIC: Cranial nerves II-XII are grossly intact. The patient is alert and oriented times three. SKIN: Warm, pink and dry. LABORATORY: White count 4,600, hemoglobin 10.4, hematocrit 31.0, platelet count 321,000. Differential does not show a left shift. It does show low lymphocytic count. Coagulation studies showed D-dimer less than 131, normal PTT, normal fibrinogen. Chemistries showed normal electrolytes. Creatinine 1.38, glucose 122, lactic acid 1.1, calcium 9.1, magnesium 1.7. Ferritin greater than 1500. LDH 194, C-reactive protein 7.6, troponin less than 0.02. BNP 85.1. Urinalysis pending. RADIOLOGY: Chest x-ray on admission per radiologic interpretation of single view chest showed no acute cardiopulmonary findings, pneumothorax or pleural effusions. ASSESSMENT: 1. COVID pneumonitis. 2. Hypertension. 3. Gastroesophageal reflux disease. 4. Hyperlipidemia. 5. Menopause. 6. Osteoporosis. PLAN: Ms. Jarrell is going to be admitted for COVID pneumonitis and further treatment given the fact that she is hypoxic on room air and 89 years of age. She will be started on protocol treatment with Remdesivir, Rocephin, azithromycin, Decadron, Align and Protonix. We will followup her x-rays and laboratory studies per protocol. I anticipate her length of stay to be at least 2 to 3 days. She will be provided oxygen as needed to keep O2 saturations above 94%. We will resume her home medications once those have been updated and verified. She will be on DVT prophylaxis with Lovenox renally dosed. Until the patient can transition to outpatient management, we will continue to monitor and treat as needed. #[id number] [facility]
[2020-07-04] MEDS ORDERED: ALBUTEROL INHALER 64 PUFF/8GM INH PRN (19:31)
[2020-07-04] MEDS ORDERED: REMDESIVIR 200 MG in SODIUM CHLORIDE 0.9% 250ML 250 ML IVPB ONE (19:31)
[2020-07-04] MEDS ORDERED: SODIUM CHLORIDE 0.9% (FLUSH) 10 ML SYG IV PRN (19:36)
[2020-07-04] MEDS ORDERED: ACETAMINOPHEN 325 MG TAB PO PRN (19:36)
[2020-07-04] MEDS ORDERED: ONDANSETRON INJ 4 MG/2 ML VIAL IV PRN (19:36)
[2020-07-04] MEDS ORDERED: SUCRALFATE 1 GM TAB PO ONE (19:49)
[2020-07-04] MEDS ORDERED: cefTRIAXone SODIUM 1 GM VIAL ONE (19:50)
[2020-07-04] MEDS ORDERED: SODIUM CHLORIDE 0.9% 250ML 250 ML ONE ×2 (19:50→21:00)
[2020-07-04] MEDS ORDERED: AZITHROMYCIN IV 500 MG VIAL IVPB ONE ×2 (19:50→20:12)
[2020-07-04] MEDS ORDERED: GABAPENTIN 300 MG CAP ONE (19:50)
[2020-07-04] MEDS ORDERED: SODIUM CHL 0.9% 50ML MIN-BAG+ 0 ML IVPB ONE (19:51)
[2020-07-04] MEDS ORDERED: SODIUM CHLORIDE 0.9% 500ML 0 ML ONE (19:51)
[2020-07-04] MEDS ORDERED: REMDESIVIR IV 100 MG VIAL ONE (19:51)
[2020-07-04] MEDS ORDERED: IV SET AND CAP CHANGE INJ INJ SCH (20:00)
[2020-07-04] MEDS ORDERED: SODIUM CHL 0.9% 50ML MIN-BAG+ 50 ML IVPB ONE (20:12)
[2020-07-04] MEDS: cefTRIAXone SODIUM 1 GM in SODIUM CHL 0.9% 50ML MIN-BAG+ 50 ML IVPB SCH (20:13)
[2020-07-04] MEDS: ENOXAPARIN SODIUM 30 MG/0.3 ML SYG SUBCU SCH (20:46)
[2020-07-04] MEDS: guaiFENesin ER TAB 600 MG TAB PO SCH (20:46)
[2020-07-04] MEDS: NON-FORMULARY MEDICATION 1 EA MIS (Gabapentin [Neurontin] 600 MG) PO SCH (20:47)
[2020-07-04] MEDS: SUCRALFATE 1 GM TAB PO SCH ×2 (20:47→20:51)
[2020-07-04] MEDS ORDERED: MAGNESIUM SULFATE PREMIX 2GM 2 GM in PREMIX BAG 1 BAG IVPB ONE (21:27)
[2020-07-04] MEDS ORDERED: MAGNESIUM SULFATE PREMIX 2GM 50 ML IVPB ONE (21:43)
[2020-07-04] MEDS: AZITHROMYCIN IV 500 MG in SODIUM CHLORIDE 0.9% 250ML 250 ML IVPB SCH (22:50)
[2020-07-05] MEDS: PROMETHAZINE W/CODEINE SYR 6.25 MG/10 MG/5 ML UD PO PRN ×3 (02:21→20:20)
[2020-07-05] MEDS: PANTOPRAZOLE SOD SUSP 40 MG PCKT PO SCH ×2 (06:02→09:13)
--- NOTE | 2020-07-05 06:20 | RAD ---
EXAM: XR Chest, 1 View CLINICAL HISTORY: The patient is 89 years old and is Female; covid TECHNIQUE: Frontal view of the chest. COMPARISON: Chest x-ray 07/04/2020. FINDINGS: Lungs: Hazy opacification of the left lung base which may be due to atelectasis or airspace disease. Pleural space: Unremarkable. No pneumothorax. Heart: Unremarkable. Mediastinum: Unremarkable. Bones/joints: Unremarkable. IMPRESSION: Hazy opacification of the left lung base which may be due to atelectasis or airspace disease. Electronically signed by: Riaz Elias MD 07/05/2020 6:18 AM [facility]
[2020-07-05] MEDS ORDERED: hydroCHLOROthiazide 12.5 MG CAP ONE (07:28)
[2020-07-05] MEDS ORDERED: SODIUM CHLORIDE 0.9% 250ML 250 ML ONE (07:29)
[2020-07-05] MEDS ORDERED: REMDESIVIR IV 100 MG VIAL ONE (07:29)
[2020-07-05] MEDS ORDERED: GABAPENTIN 300 MG CAP ONE (07:29)
[2020-07-05] MEDS ORDERED: PANTOPRAZOLE SOD SUSP 40 MG PCKT PO SCH (09:00)
[2020-07-05] MEDS: DEXAMETHASONE INJ 10 MG/ML VIAL IV SCH (09:11)
[2020-07-05] MEDS: REMDESIVIR 100 MG in SODIUM CHLORIDE 0.9% 250ML 250 ML IVPB SCH (09:11)
[2020-07-05] MEDS: LOSARTAN POTASSIUM 100 MG TAB PO SCH (09:12)
[2020-07-05] MEDS: guaiFENesin ER TAB 600 MG TAB PO SCH ×2 (09:12→20:19)
[2020-07-05] MEDS: FENOFIBRIC ACID 135 MG CAP PO SCH (09:12)
[2020-07-05] MEDS: CITALOPRAM HBR 20 MG TAB PO SCH (09:12)
[2020-07-05] MEDS: hydroCHLOROthiazide 12.5 MG CAP PO SCH (09:13)
[2020-07-05] MEDS: amLODIPine BESYLATE 5 MG TAB PO SCH (09:13)
[2020-07-05] MEDS: NON-FORMULARY MEDICATION 1 EA MIS (Gabapentin [Neurontin] 600 MG) PO SCH (09:13)
[2020-07-05] MEDS: BIFIDOBACTERIUM INFANTIS 4 MG CAP PO SCH (09:14)
[2020-07-05] MEDS: GABAPENTIN 300 MG CAP PO SCH ×3 (09:24→20:19)
--- NOTE | 2020-07-05 11:14 | PN ---
SUPERVISING PHYSICIAN: Chano Medina MD DATE: 07/05/20 SUBJECTIVE: The patient is doing well. She is not having any significant desaturation. She is maintaining O2 saturations on 2 liters nasal cannula. No chest pains, no other complaints of nausea or vomiting. OBJECTIVE: VITAL SIGNS: Temperature 97.9, pulse 58, blood pressure 114/62, respirations 16, saturation 94-98% on 1 liter nasal cannula. GENERAL: The patient is resting comfortably with no obvious distress. CHEST: Lung sounds a little diminished towards the bases, otherwise clear. HEART: Regular rate and rhythm. ABDOMEN: Soft, nontender. Positive bowel sounds. EXTREMITIES: No edema. NEUROLOGIC: Alert and oriented times three. LABORATORY: White count this morning was 3,600, hemoglobin 11.0, hematocrit 32.6, platelet count 335,000. Differential is without a left shift. Coagulation studies still show D-dimer less than 131. Fibrinogen normal at 361. PTT 33.1. Chemistries show normal electrolytes with creatinine 1.25, calcium 8.7, magnesium 3.0, AST a little elevated at 45, ALT 19, C-reactive protein 17.6. Urinalysis pending. MICROBIOLOGY: Blood cultures negative at 24 hours. RADIOLOGY: Repeat chest x-ray this morning per radiologic interpretation of single view chest shows hazy opacity in the left lung base which may be due to atelectasis or airspace disease. ASSESSMENT: 1. COVID pneumonitis with developing left lower lobe pneumonia. 2. Hypertension. 3. Gastroesophageal reflux disease. 4. Hyperlipidemia. 5. Menopause. 6. Osteoporosis. PLAN: We will continue treatment per COVID guidelines with Remdesivir, Rocephin, azithromycin, Decadron, Align and Protonix. We will titrate her oxygen down to room air. I anticipate hopefully being able to discharge either tomorrow or the next day. Until the patient can transition to outpatient management, we will continue to monitor and treat as needed. #[id number] [facility]
[2020-07-05] MEDS: cefTRIAXone SODIUM 1 GM in SODIUM CHL 0.9% 50ML MIN-BAG+ 50 ML IVPB SCH (19:49)
[2020-07-05] MEDS: AZITHROMYCIN IV 500 MG in SODIUM CHLORIDE 0.9% 250ML 250 ML IVPB SCH (20:18)
[2020-07-05] MEDS: ENOXAPARIN SODIUM 30 MG/0.3 ML SYG SUBCU SCH (20:19)
[2020-07-06] MEDS ORDERED: PANTOPRAZOLE SODIUM TAB 40 MG PO ONE (02:35)
[2020-07-06] MEDS ORDERED: PANTOPRAZOLE SODIUM TAB 40 MG PO SCH (06:30)
[2020-07-06] MEDS: DEXAMETHASONE INJ 10 MG/ML VIAL IV SCH (08:17)
[2020-07-06] MEDS: REMDESIVIR 100 MG in SODIUM CHLORIDE 0.9% 250ML 250 ML IVPB SCH (08:17)
[2020-07-06] MEDS: hydroCHLOROthiazide 12.5 MG CAP PO SCH (08:18)
[2020-07-06] MEDS: amLODIPine BESYLATE 5 MG TAB PO SCH (08:18)
[2020-07-06] MEDS: FENOFIBRIC ACID 135 MG CAP PO SCH (08:18)
[2020-07-06] MEDS: guaiFENesin ER TAB 600 MG TAB PO SCH (08:18)
[2020-07-06] MEDS: GABAPENTIN 300 MG CAP PO SCH (08:18)
[2020-07-06] MEDS: LOSARTAN POTASSIUM 100 MG TAB PO SCH (08:18)
[2020-07-06] MEDS: CITALOPRAM HBR 20 MG TAB PO SCH (08:18)
[2020-07-06] MEDS: BIFIDOBACTERIUM INFANTIS 4 MG CAP PO SCH (08:18)
[2020-07-06] MEDS: PROMETHAZINE W/CODEINE SYR 6.25 MG/10 MG/5 ML UD PO PRN (09:13)
[2020-07-06 13:03] VITALS: BP 121/62; TEMP 97.9
[2020-07-06 13:40] VITALS: O2SAT 92
--- NOTE | 2020-07-07 10:40 | DS ---
SUPERVISING PHYSICIAN: Chano Medina MD ADMISSION DIAGNOSIS: 1. COVID pneumonitis. 2. Hypertension. 3. Gastroesophageal reflux disease. 4. Hyperlipidemia. 5. Menopause. 6. Osteoporosis. DISCHARGE DIAGNOSIS: 1. COVID pneumonitis with developing left lower lobe pneumonia. 2. Hypertension. 3. Gastroesophageal reflux disease. 4. Hyperlipidemia. 5. Menopause. 6. Osteoporosis. REASON FOR HOSPITALIZATION: Ms. Jarrell is an 89-year-old female patient who presented to the Emergency Department yesterday complaining of low oxygen levels. She was seen just prior to the ER visit in the clinic at [facility] where she went to get tested, but on presentation to the clinic, she was found to be hypoxic with O2 saturations 88% on room air. She was then referred to the ER for further evaluation. She had no complaints of any chest pain, significant distress or worsening shortness of breath, nausea, vomiting or diarrhea. In the ER, her vital signs showed saturation 89% on room air, afebrile at 98.4. Nasal swab for COVID was positive. She was started on Decadron and oxygen. Blood cultures were completed. Given her history of room air hypoxia with current COVID testing positive and advanced age at 89, she is now going to be admitted for further treatment of COVID pneumonitis. She was admitted in stable condition. LABORATORY: White count on discharge was 7,600, hemoglobin 9.9, hematocrit 29.5, platelet count 334,000. Differential is without a left shift. Lymphocytic count is low. Coagulation studies show D-dimer normal at less than 100, PT normal at 31.4. Chemistries show normal electrolytes. Creatinine slightly elevated at 1.31. Liver functions all within normal limits. CK 264, troponin less than 0.02, C-reactive protein down to 3.4 from admission of 7.6. MICROBIOLOGY: Blood cultures show no growth after 48 hours. Nasal swab for COVID was positive. RADIOLOGY: Chest x-ray on 07/05/20 per radiologic interpretation showed hazy opacification in the left lung base which may be due to atelectasis or airspace disease. HOSPITAL COURSE: Ms. Jarrell was admitted for COVID pneumonitis with developed left lower lobe pneumonia. She was treated aggressively with Remdesivir, Rocephin, azithromycin, Protonix, Align, aggressive pulmonary hygiene and Decadron. She did show good clinical improvement in regards to her oxygenation. She was actually maintaining 98% on room air prior to discharge. Temperature was 97.9, pulse 64, blood pressure 121/62. Physical evaluation with physical therapy prior to discharge found the patient to be at baseline and recommended home health for continued care and safe to discharge home. She again showed good clinical improvement. Her ambulation study on discharge showed saturation 98% at rest and with exertion only dropped to 93%, but recovered quickly up to 98% on 2 liters, not requiring any supplementation prior to discharge. PLAN: Ms. Jarrell was discharged on 07/06/20 with instructions to followup with her primary care provider, Dr. Salcido, in 7 days or sooner as needed. She was to resume her usual diet and resume her usual activities. She was to have home health which was arranged prior to discharge through [facility]. All other medications prior to hospitalization were continued as is. Medications prescribed on discharge included: 1. Align 4 mg daily while on antibiotics. 2. Azithromycin 500 mg daily, #3, no refills. 3. Decadron 6 mg daily, #8, no refills. 4. Guaifenesin 600 mg twice daily while on antibiotics. 5. Cefdinir 300 mg twice daily, #10, no refills. 6. Cough medicine with Phenergan with codeine 5 mL q.4h. as needed, 4 ounces, no refills. 7. Albuterol inhaler 2 puffs as needed for shortness of breath, #1 inhaler, no refills. CONDITION ON DISCHARGE: Stable and improved. DISPOSITION: The patient was discharged home. #[id number] [facility]
== END 2020-07-06 14:40 | disposition home health service (06) | DRG 177 ==
LOC: ER 13:49 → MS 18:06 → OBSVTOIN 18:06
PROVIDERS: ADMIT Nurse Practitioner Family; ATTEND Nurse Practitioner Family
PROC: XW033E5 Introduction of Remdesivir Anti-infective into Peripheral Vein, Percutaneous Approach, New Technology Group 5 (ICD-10-PCS; principal; 2020-07-05)
DX: U07.1 COVID-19 (principal); J12.82 Pneumonia due to coronavirus disease 2019; R09.02 Hypoxemia; R19.7 Diarrhea, unspecified; K21.9 Gastro-esophageal reflux disease without esophagitis; I10 Essential (primary) hypertension; E78.5 Hyperlipidemia, unspecified; M81.0 Age-related osteoporosis without current pathological fracture; Z78.0 Asymptomatic menopausal state

== ENCOUNTER → 2020-08-26 | Outpatient (CLI) | payer MEDICARE, BC | LOC: GMAE 13:12 | PROVIDERS: ATTEND Family Medicine | DX: I10 Essential (primary) hypertension (principal); E78.2 Mixed hyperlipidemia ==